=== PATIENT | female | born 1985 | race Caucasian/White ===

== ENCOUNTER 2021-07-26 12:53 | Emergency (ER) | payer BC ==
[2021-07-26 13:07] VITALS: BP 132/76; PULSE 89
[2021-07-26] MEDS ORDERED: Ondansetron 4 MG/2 ML SDV IVPUSH ONE (13:25)
[2021-07-26] MEDS ORDERED: Sodium Chloride 0.9% 1,000 ML IV STA (13:25)
[2021-07-26] MEDS ORDERED: Sodium Chloride 0.9% 10 ML Syringe FLUSH PRN (13:25)
== END 2021-07-26 17:20 | disposition home or self-care (01) ==
LOC: JD.ED 12:53
DX: H81.12 Benign paroxysmal vertigo, left ear (principal); Z86.16 Personal history of COVID-19
CPT/HCPCS: 36415; 70450; 80053; 85025; 96374; 99284; A9270; J2405; J7030

== ENCOUNTER 2023-05-18 20:31 | Emergency (ER) | payer BC ==
[2023-05-18 21:02] VITALS: BP 110/52
[2023-05-18 22:28] LABS: APPEARANCE,URINE CLEAR (Clear); BILIRUBIN,URINE 1+ (Negative); COLOR,URINE YELLOW (Yellow); GLUCOSE,URINE NEGATIVE (Negative); KETONES,URINE TRACE (Negative); LEUKOCYTE ESTERASE,URINE 1+ (Negative); NITRITE,URINE NEGATIVE (Negative); OCCULT BLOOD,URINE NEGATIVE (Negative); PROTEIN,URINE 2+ (Negative)
[2023-05-18 22:29] VITALS: PULSE 67
[2023-05-18 22:37] LABS: BASOPHILS PERCENT AUTO 0.1 % (0.0-1.0); EOSINOPHILS PERCENT AUTO 0.2 % (0.0-6.0); HEMATOCRIT 33.6 % (37.0-47.0); HEMOGLOBIN 10.9 gm/dl (12.0-16.0); IMMATURE GRAN ABSOLUTE AUTO 0.06 K/mm3 (0.00-0.05); IMMATURE GRAN PERCENT AUTO 0.4 % (0.0-0.4); LYMPHOCYTES ABSOLUTE AUTO 2.2 K/mm3 (1.0-4.8); LYMPHOCYTES PERCENT AUTO 15.9 % (24.0-44.0); MEAN CORPUSCULAR HEMOGLOBIN 20.9 pg (28.0-32.0); MEAN CORPUSCULAR HGB CONC 32.4 g/dl (32.0-36.0); MEAN CORPUSCULAR VOLUME 64.4 fl (83.0-99.0); MONOCYTES ABSOLUTE AUTO 0.9 K/mm3 (0.0-0.8); MONOCYTES PERCENT AUTO 6.5 % (0.0-8.0); NEUTROPHILS ABSOLUTE AUTO 10.9 K/mm3 (1.8-7.7); NEUTROPHILS PERCENT AUTO 76.9 % (41.0-71.0); PLATELET COUNT,PLT 246 K/mm3 (150-400); RED BLOOD CELL COUNT 5.22 M/mm3 (4.10-5.30); WHITE BLOOD CELL COUNT,WBC 14.12 K/mm3 (3.9-11.3)
[2023-05-18 22:45] LABS: BACTERIA,URINE MODERATE /hpf (FEW); EPITHELIAL CELLS,URINE 0-5 /hpf (0-5); RBC,URINE 0-5 /hpf (0-5)
[2023-05-18 22:46] LABS: MUCUS,URINE MANY /hpf (FEW)
[2023-05-18 22:58] LABS: A/G RATIO 1.2 (1-2); ALBUMIN 3.7 g/dl (3.4-5.0); ANION GAP 14.7 (5-15); BILIRUBIN TOTAL 1.3 mg/dL (0.2-1.0); BUN/CREATININE RATIO 13.3 (14-18); CALCIUM 8.9 mg/dL (8.5-10.1); CREATININE 0.9 mg/dL (0.55-1.02); EST CRCL DRUG DOSING (CG) 78.56 mL/min; POTASSIUM,K 3.7 mEq/L (3.5-5.1); PROTEIN TOTAL,TP 6.9 g/dl (6.4-8.2)
[2023-05-18 23:28] LABS: SLIDE REVIEW ABNORMAL SMEAR
== END 2023-05-19 01:46 | disposition home or self-care (01) ==
LOC: JD.ED 20:31
DX: K80.50 Calculus of bile duct without cholangitis or cholecystitis without obstruction (principal); Z86.16 Personal history of COVID-19
CPT/HCPCS: 36415; 74019; 74019-26; 76705; 76705-26; 80053; 81001; 81025; 83690; 85025; 87086; 99284